=== PATIENT | male | born 1950 | race Caucasian/White ===

== ENCOUNTER 2021-05-30 12:15 | Emergency (ER) | payer OTHER ==
[~2021-05-30] VITALS: Ht 175.3 cm; Wt 72.6 kg
[~2021-05-30 12:15] MED LIST: ANUSOL HC SUPP1 SUPP PR; ASPIR-LOW81 MG PO; KEFLEX CAP 500500 MG PO; NORCO 7.5-3251 EACH PO; PROTONIX 20 MG20 MG PO; TYLENOL 500 MG500 MG PO
== END 2021-05-30 14:30 | disposition home or self-care (01) ==
LOC: ER1 12:15
DX: U07.1 COVID-19 (principal); Z23 Encounter for immunization
CPT/HCPCS: 99282; M0243